=== PATIENT | female | born 1975 | race Caucasian/White ===

== ENCOUNTER 2018-11-30 09:29 | Inpatient (IN) ==
[2018-11-30] MEDS ORDERED: ZOFRAN ODT PO PRN (11:17)
[2018-11-30] MEDS ORDERED: PHENOBARBITAL IV PRN (11:17)
[2018-11-30] MEDS ORDERED: DULCOLAX PR PRN (11:17)
[2018-11-30] MEDS ORDERED: TUBERSOL ID ONE (11:17)
[2018-11-30] MEDS ORDERED: IMODIUM PO PRN ×2 (11:17)
[2018-11-30] MEDS ORDERED: TYLENOL PO PRN (11:17)
[2018-11-30] MEDS ORDERED: NICOTINE GUM BUCCAL PRN (11:17)
[2018-11-30] MEDS ORDERED: MAALOX PLUS LIQUID PO PRN (11:17)
[2018-11-30] MEDS ORDERED: ZOFRAN IM PRN (11:17)
[2018-11-30] MEDS ORDERED: SENOKOT PO PRN (11:17)
[2018-11-30] MEDS ORDERED: ZOFRAN IV PRN (11:17)
[2018-11-30] MEDS ORDERED: MOTRIN PO PRN (11:17)
[2018-11-30] MEDS ORDERED: D5W 1,000 ML IV PRN (11:17)
[2018-11-30 11:37] LABS: HEMATOCRIT 41.2 % (37.0-47.0); HEMOGLOBIN 14.1 g/dL (12.0-16.0); MCH 31.1 PG (27-31); MCHC 34.2 g/dL (33-37); MCV 90.9 FL (81-99); MPV 8.9 FL (7.4-10.4); RBC 4.53 XMIL (4.2-5.4); RDW 12.2 % (11.5-14.5); WBC 4.63 X1000 (4.8-10.8)
[2018-11-30 11:57] LABS: INR 0.86; PROTIME 12.2 Seconds (11.0-16.0)
[2018-11-30 11:58] LABS: AGAP 13; ALKALINE PHOSPHATASE 116 U/L (32-104); AMYLASE 74 U/L (20-200); BUN 4 mg/dL (8-22); CALCIUM 8.8 mg/dL (8.8-10.2); CHLORIDE 93 mmol/L (98-107); COSMO 268; CREATININE 0.4 mg/dL (0.5-0.9); ESTIMATED GFR > 60; GLUCOSE 79 mg/dL (70-104); GOT 194 U/L (10-30); GPT 151 U/L (10-36); LIPASE 33 U/L (13-60); POTASSIUM 4.1 mmol/L (3.5-5.1); SODIUM 136 mmol/L (136-145); TCO2 30 mmol/L (25-35); TOTAL PROTEIN 7.7 g/dL (6.3-8.3)
[2018-11-30] MEDS: NICODERM PATCH TD PRN (12:06)
[2018-11-30 12:11] LABS: URINE SOURCE CLEAN CATCH
[2018-11-30 12:14] LABS: BILIRUBIN URINE NEGATIVE (NEGATIVE); BLOOD URINE NEGATIVE (NEGATIVE); CLARITY CLEAR (CLEAR); COLOR YELLOW; GLUCOSE URINE NEGATIVE (NEGATIVE); KETONE URINE NEGATIVE (NEGATIVE); LEUKOCYTES URINE NEGATIVE (NEGATIVE); NITRITE URINE NEGATIVE (NEGATIVE); PH URINE 6.5; PROTEIN URINE NEGATIVE (NEGATIVE); SP GRAVITY URINE 1.005; UROBILINOGEN URINE NORMAL
[2018-11-30 12:28] LABS: UR AMPHETAMINES QUAL NONE DETECTED (NONE DETECT); UR BARBITUATES QUAL PRESUMPTIVE POSITIVE (NONE DETECT); UR BENZODIAZEPIN QUAL NONE DETECTED (NONE DETECT); UR CANNABINOIDS QUAL NONE DETECTED (NONE DETECT); UR COCAINE QUAL NONE DETECTED (NONE DETECT); UR METHADONE QUAL NONE DETECTED (NONE DETECT); UR METHAMPHETAMINE QUAL NONE DETECTED (NONE DETECT); UR OPIATES QUAL NONE DETECTED (NONE DETECT); UR OXYCODONE QUAL NONE DETECTED (NONE DETECT); UR PCP QUAL NONE DETECTED (NONE DETECT); UR PROPOXYPHENE QUAL NONE DETECTED (NONE DETECT); UR TCA QUAL NONE DETECTED (NONE DETECT)
[2018-11-30] MEDS ORDERED: BENTYL PO PRN (13:22)
[2018-11-30] MEDS ORDERED: SALINE LOCK IV FLUID XX ONE (13:22)
[2018-11-30] MEDS ORDERED: M.V.I.-12 10 ML, FOLIC ACID 1 MG, MAGNESIUM SULFATE 1 GM, THIAMINE 100 MG in NS 1,000 ML IV ONE (14:30)
[2018-11-30] MEDS: LIBRIUM PO SCH ×2 (14:59→21:45)
[2018-11-30] MEDS: SEROQUEL PO PRN (21:45)
[2018-12-01] MEDS: LIBRIUM PO SCH ×4 (03:14→21:39)
[2018-12-01] MEDS: PROTONIX PO SCH (06:34)
[2018-12-01] MEDS: SUBOXONE 2 MG/0.5 MG FILM SL SCH ×2 (09:32→21:35)
[2018-12-01] MEDS: FOLIC ACID PO SCH (09:32)
[2018-12-01] MEDS: VITAMIN B-1 PO SCH (09:32)
[2018-12-01] MEDS: THERA M PLUS PO SCH (09:32)
[2018-12-01] MEDS: ATARAX PO PRN (09:32)
[2018-12-01] MEDS: NICODERM PATCH TD PRN (13:51)
[2018-12-01] MEDS ORDERED: LIBRIUM PO ONE (16:30)
[2018-12-01] MEDS: SEROQUEL PO PRN (21:35)
[2018-12-01] MEDS: REMERON PO SCH (21:35)
[2018-12-02] MEDS: ATARAX PO PRN ×3 (01:29→18:04)
[2018-12-02] MEDS: DESYREL PO PRN (02:27)
[2018-12-02] MEDS: LIBRIUM PO SCH ×4 (03:45→21:21)
[2018-12-02 06:00] LABS: HEMATOCRIT 38.7 % (37.0-47.0); MCH 31.3 PG (27-31); MCHC 33.6 g/dL (33-37); MPV 9.5 FL (7.4-10.4); RBC 4.16 XMIL (4.2-5.4); RDW 12.4 % (11.5-14.5); WBC 3.39 X1000 (4.8-10.8)
[2018-12-02] MEDS: PROTONIX PO SCH (06:05)
[2018-12-02] MEDS: ROBAXIN PO PRN ×2 (06:15→21:20)
[2018-12-02 06:34] LABS: AGAP 11; ALBUMIN 4.1 g/dL (3.5-5.0); ALKALINE PHOSPHATASE 104 U/L (32-104); BUN 3 mg/dL (8-22); CALCIUM 8.8 mg/dL (8.8-10.2); CHLORIDE 100 mmol/L (98-107); COSMO 272; CREATININE 0.5 mg/dL (0.5-0.9); ESTIMATED GFR > 60; GLUCOSE 103 mg/dL (70-104); GOT 107 U/L (10-30); GPT 109 U/L (10-36); MAGNESIUM 1.9 mg/dL (1.5-2.7); POTASSIUM 3.9 mmol/L (3.5-5.1); SODIUM 138 mmol/L (136-145); TCO2 28 mmol/L (25-35); TOTAL PROTEIN 6.5 g/dL (6.3-8.3)
[2018-12-02] MEDS: THERA M PLUS PO SCH (09:51)
[2018-12-02] MEDS: VITAMIN B-1 PO SCH (09:51)
[2018-12-02] MEDS: SUBOXONE 2 MG/0.5 MG FILM SL SCH ×2 (09:51→21:21)
[2018-12-02] MEDS: FOLIC ACID PO SCH (09:51)
[2018-12-02] MEDS: NICODERM PATCH TD PRN (13:16)
[2018-12-02] MEDS: REMERON PO SCH (21:20)
[2018-12-02] MEDS: SEROQUEL PO PRN (21:20)
[2018-12-03] MEDS: LIBRIUM PO SCH ×5 (04:03→23:52)
[2018-12-03] MEDS: PROTONIX PO SCH (06:17)
[2018-12-03] MEDS: ATARAX PO PRN (06:55)
--- NOTE | 2018-12-03 09:09 | PROGRESS NOTE ---
DATE: 12/03/2018 SUBJECTIVE: Patient states she feels terrible, nervous, jittery, anxious. Oddly enough, she refused Suboxone last night. This morning, she states that she only takes 1 strip a day. After approximately 20 minutes in discussion, I believe she may have understood the difference between a 2 mg strip of which she was to be given two last night for a total of 4 mg versus the 8 mg strips which she takes at home. Difference between the 2 mg strip and the 8 mg strip seem to be quite taxing for her. PHYSICAL EXAMINATION: Vital Signs: Reviewed. She is awake, alert. She is sitting in the chair. She is in no respiratory distress. HEENT: Normocephalic. Neck: Supple. Cardiovascular: Regular rate. Chest: Clear. Abdomen: Soft. Extremities: Moves all extremities. Neurologic: No changes. ASSESSMENT: 1. Polysubstance use and abuse. The patient currently is on Suboxone 8 mg at home. However, she refused to take more than 2 mg last night because of her confusion on the difference between the 2 mg strip and the 8 mg strip. She also admits that she takes at least 10 mg of Xanax a day and drinks alcohol on a daily excessive basis. Twenty minutes were spent in discussion regarding use and abuse. Discussed with patient that people all the time from unintentional but permanent overdoses. Discussed that there is no way we give her as much medicine as she was on and keep her on that. Discussed that if that was her intent, then she should leave against medical advice, which she has threatened 3 times already, and go home and continue to abuse, but until she can understand that another will not fix her problem, then she will continue to stay an addict. She has apparently been in rehabs multiple times. Each time, she has left against medical advice and went home and started abusing again. Discussed that there is not a substance on the planet they can safely make someone permanently feel numb without causing them to become a permanent zombie. Discussed that she desperately needs counseling, drug counseling and life counseling. 2. Anxiety, difficult to control. 3. Myalgias, improved. 4. Alcohol withdrawal. The patient is not currently in any outward symptoms of alcohol withdrawal. She is jittery and anxious but this appears to be more anxiety-related. She has no tremors, no sweating. cc: Sunny Bragg MD
[2018-12-03] MEDS ORDERED: LIBRIUM PO ONE (10:15)
[2018-12-03] MEDS ORDERED: LIBRIUM PO PRN (10:17)
[2018-12-03] MEDS: SUBOXONE 8 MG/2 MG FILM SL SCH ×2 (10:39→20:31)
[2018-12-03] MEDS: THERA M PLUS PO SCH (10:40)
[2018-12-03] MEDS: VITAMIN B-1 PO SCH (10:41)
[2018-12-03] MEDS: FOLIC ACID PO SCH (10:41)
[2018-12-03] MEDS: NICODERM PATCH TD PRN (12:33)
--- NOTE | 2018-12-03 14:05 | PROGRESS NOTE ---
DATE: 12/03/2018 SUBJECTIVE: Initially upon exam patient is anxious, nervous, crying on exam. After 40 minutes of counseling, she is calm and states that she is feeling better. PHYSICAL EXAMINATION: Vital Signs: Reviewed. She is afebrile. Temperature 97 degrees, pulse 70, respiratory 20, BP stable. General: Patient is awake, alert. She is in no respiratory distress. Initially she is quite anxious on exam and crying. HEENT: Normocephalic. Neck: Supple. Cardiovascular: Regular rate. Chest: Clear. Abdomen: Soft, nondistended. Extremities: Moves all extremities. Neurologic: No changes. ASSESSMENT: 1. Nausea, vomiting, abdominal pain. 2. Tremors. 3. Paresthesias. 4. Paroxysmal sweating. 5. Chronic anxiety, depression. 6. Alcohol abuse withdrawal and stabilization. 7. Benzodiazepine abuse withdrawal and stabilization. 8. Opiate abuse and stabilized on Suboxone. PLAN: I spent 40 minutes in counseling with Ms. Montoya regarding use, abuse, regarding addiction dependence. Discussed with her that she needs to continue with counseling. She needs continue to teach herself that another will never fix her problem as it is not the past. She apparently was taking up to 10 mg of Xanax a day as well as frequently drinking alcohol and taking Suboxone. Discussed with her how dangerous this is and that either of those 3 substances, she would have ended up permanently . Discussed that she needs to continue with counseling despite the fact that she has had a history of having a counselor that apparently was arrested. 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 cc: Sunny Bragg MD
--- NOTE | 2018-12-03 14:23 | HISTORY AND PHYSICAL ---
CHIEF COMPLAINT: Nausea and vomiting. HISTORY OF PRESENT ILLNESS: The patient is a 43-year-old female who presented to [facility] secondary to nausea, vomiting, abdominal pain, tremors, myalgias. Notes that she started drinking heavily again, and needs to stop. States that she will stay on Suboxone. SOCIAL HISTORY: The patient is single. She is employed. Lives in [place]. PAST MEDICAL HISTORY: Significant for seizures that were most likely alcohol related, depression, anxiety, polysubstance abuse, hypertension, history of pancreatitis. MEDICATIONS: Suboxone 11/10, Remeron 15 at bedtime, Viibryd although she has not started it. ALLERGIES: No known drug allergies. REVIEW OF SYSTEMS: CIWA score is elevated at 31 secondary to moderate tremors, anxious, fidgety, unable to sit still, guarded, tearful, nauseated, having frequent diarrhea. Complains of sensitivity to light. She is anxious, unable to sleep, decreased oral intake, having paresthesias, paroxysmal sweating. Denies headaches, blurred vision, change in vision. Denies any focalized numbness, tingling, or weakness in her extremities. Denies dysuria, frequency, or urgency. Denies hesitancy, polyuria, or polydipsia. SUBSTANCE ABUSE HISTORY: The patient was in [facility] in 2012, left AGAINST MEDICAL ADVICE. She was in [facility] in 2013, left AGAINST MEDICAL ADVICE. She was in [facility] for 28 days for detox in 2012- timeframe, did not stay sober. In 2014, she started on Suboxone, and has been stable from Suboxone. States that she has not drank in several years, although she has started back a few months ago. States she is at risk of losing her job due to alcoholism. Her parents have told her to get clean or get out. She has recently started drinking at work due to withdrawal. Started drinking as early as age 13. Drinks about 12 to 20 beers a day. Started marijuana at 16, has not used in years. Started depressants in her 20s. Currently doubles her prescribed dose, although admits that she takes up to 10 mg a day. Started smoking at 12, currently is vaping. Started opiates at 12, currently is stable on 1 Suboxone a day. FAMILY HISTORY: Noncontributory. PHYSICAL EXAMINATION: VITAL SIGNS: Reviewed and stable. GENERAL: The patient is awake, alert currently. She is in no respiratory distress. HEENT: Normocephalic. NECK: Supple. CARDIOVASCULAR: Regular rate. CHEST: Clear. ABDOMEN: Soft. EXTREMITIES: Moves all extremities. NEUROLOGIC: No focal changes. SKIN: Warm and dry. No rashes. ASSESSMENT: 1. Nausea and vomiting. 2. Abdominal pain. 3. Myalgias. 4. Paresthesias. 5. Paroxysmal sweating. 6. Alcohol abuse, withdrawal, and stabilization. 7. Opiate abuse by history, currently stabilized on medication-assisted therapy, Suboxone. PLAN: Discussed with the patient that although we will continue her Suboxone, we certainly need to decrease the dose momentarily to get her on high-dose Librium to prevent withdrawal from alcohol. As we are able to, we will wean back up her Suboxone to her full dose. Further orders as needed. cc: Sunny Bragg MD
[2018-12-03] MEDS: SUBOXONE 2 MG/0.5 MG FILM SL SCH (19:33)
[2018-12-03] MEDS: REMERON PO SCH (20:29)
[2018-12-03] MEDS: ROBAXIN PO PRN (20:29)
[2018-12-03] MEDS: SEROQUEL PO PRN (20:29)
[2018-12-04] MEDS: ATARAX PO PRN (00:10)
[2018-12-04] MEDS: DESYREL PO PRN (00:10)
[2018-12-04] MEDS: LIBRIUM PO SCH ×2 (03:20→09:25)
[2018-12-04] MEDS: PROTONIX PO SCH (06:17)
[2018-12-04 07:36] VITALS: BP 117/70
[2018-12-04] MEDS: THERA M PLUS PO SCH (09:26)
[2018-12-04] MEDS: FOLIC ACID PO SCH (09:26)
[2018-12-04] MEDS: VITAMIN B-1 PO SCH (09:26)
[2018-12-04] MEDS: SUBOXONE 8 MG/2 MG FILM SL SCH (09:26)
--- NOTE | 2018-12-05 19:41 | DISCHARGE SUMMARY ---
ADMISSION DATE: 11/30/2018 DISCHARGE DATE: 12/04/2018 DISCHARGE DIAGNOSES: 1. Nausea and vomiting. 2. Abdominal pain. 3. Myalgias. 4. Tremors. 5. Paresthesias. 6. Paroxysmal sweating. 7. Alcohol abuse withdrawal and stabilization. 8. History of seizures during withdrawal. 9. Chronic anxiety and depression. CONSULTATIONS: None. PROCEDURES: None. BRIEF HOSPITAL COURSE: The patient is a 43-year-old female who presented to [facility] secondary to nausea, vomiting, abdominal pain, and myalgias. She was having tremors. We placed her on high-dose Librium taper. We did begin weaning. The patient at one point did admit that she was taking up to 10 mg of Xanax a day as well as drinking alcohol and taking Suboxone. On several different occasions, I spent more than 20 minutes with Ms. Montoya in attempting to elementary school counselor her. To begin the hospital stay, she was quite manipulative and continued to attempt to threaten that she was going to leave [place]. At one point, I personally discussed with her that this was not a long term, and was well within her right to leave any time she chose to, but threatening was not going to get her what she was attempting to get. Discussed that manipulative controlling behavior is the reason that she is an alcoholic, benzo addict, as well as an opiate addict, because she constantly felt as though she could manipulate and control not only her situation, her environment, her medications, but also the people around her. Discussed would need outpatient life counseling as well as drug counseling. She needs to develop hobbies and activities that do not remind her or encourage her to use and abuse. We were able to wean her down and off of Librium prior to discharge. She is currently on her 8 mg daily of Suboxone. TIME SPENT: Greater than 30 minutes was spent in total care. cc: Sunny Bragg MD
== END 2018-12-04 10:04 | disposition home or self-care (01) | DRG 392 ==
LOC: P.DIRADM 09:29 → P.MEDSURG 10:18
PROVIDERS: ADMIT Family Medicine; ATTEND Family Medicine